=== PATIENT | female | born 1945 | race Caucasian/White ===

== ENCOUNTER 2017-03-02 23:40 | Inpatient (IN) | payer OTHER ==
[~2017-03-02] VITALS: Ht 152.4 cm; Wt 95.3 kg
--- NOTE | ~2017-03-02 | HC ---
[facility] [place] [address] CONSULTATION Name: ASTRID PATEL Room #: [facility] IN M.R.#: [id number] Admission: 03/03/17 Attend Phys: Olivier Mason MD Discharge: Date of : 49 Report #: [id number] THIS REPORT FOR: //name// CC: Chano Garcia FAM unknown Olivier Hines PULMONARY CONSULTATION PRIMARY PHYSICIAN: Forrest Parada MD REFERRAL PHYSICIAN: Dr. Theo Crews. REASON FOR REFERRAL: Cardiac arrest. HISTORY OF PRESENT ILLNESS: The patient is a 71-year-old white female who was brought to the emergency room via [place] [employer] following cardiac arrest. A pulmonary consultation was requested. According to records, the patient complained of chest pain. 911 was called. When EMS arrived, the patient was found to be in ventricular fibrillation. The family had initially started CPR when the patient became unresponsive. The patient was cardioverted 2 times. According to the records, the patient received CPR approximately 35 minutes at the home. She was given epinephrine along with amiodarone. Intubation attempt was unsuccessful. A supraglottic airway was placed. The patient remains unresponsive and hypotensive when she arrived to the emergency room. In the ER, the patient was given vasopressors, resuscitated. She was intubated. The patient was felt to have aspirated. She was subsequently transferred to the ICU. She remains obtunded. Hypotensive, requiring vasopressors. Chest x-ray revealed mild infiltrates, seen in the right lower lung field. ET tube is in the appropriate position above the faustino around 2 cm. NG is placed. Central line placement had been difficult given a body habitus. She has an intraosseous placed. Earlier this morning, she was taken to the field laborer for central line placement and art line placement. Initial reading showed a pulmonary capillary wedge pressure of 30s. Systolic blood pressure was said to be in 160 mmHg. Currently, she is unresponsive, has some mild twitches involving her upper extremities and her face. [facility] [address] [place] [address] CONSULTATION Name: ASTRID PATEL Miguel A Room #: 247-P ADM IN M.R.#: [id number] Admission: 03/03/17 Attend Phys: Olivier Mason MD Discharge: Date of : 49 Report #: [id number] PAST MEDICAL HISTORY: Notable for history of cardiac arrest in 2014, atrial fibrillation, coronary artery disease, status post coronary bypass surgery in 2014, status post cardiac stent, she sees Dr. Diaz, atrial fibrillation in the past with cardioversion, hypertension, ischemic cardiomyopathy with ejection fraction approximately 40-45%, she was recently seen by Dr. Diaz 2 weeks ago; history of gastritis. PAST SURGICAL HISTORY: Notable for coronary artery bypass surgery as mentioned above, appendectomy, right ankle pinning, and tubal ligation. ALLERGIES: PENICILLIN, WHICH CAUSES SEVERE CONVULSIONS. HOME MEDICATIONS: Reviewed, these include Valium, Eliquis, aspirin, Lipitor, Coreg, Zestril, Zantac, and Benadryl. FAMILY HISTORY: Noncontributory. SOCIAL HISTORY: She is a lifetime nonsmoker. She drinks socially. She is . REVIEW OF SYSTEMS: Deferred as the patient is intubated and encephalopathic. PHYSICAL EXAMINATION: GENERAL: She is unresponsive. VITAL SIGNS: Temperature is hypothermic as she is currently on the hypothermia protocol, pulse is 64, respiratory rate is 25, blood pressure 90/60 mmHg, and saturation 100%. HEENT: Normocephalic, atraumatic. NECK: Supple without any lymphadenopathy or thyromegaly. CHEST: Breath sounds are distant and clear. No obvious wheezes or rales. CARDIOVASCULAR: Heart sounds are distant. No obvious murmurs or gallop. Pulses are decreased bilaterally by 1/4+. BREASTS: Deferred. ABDOMEN: Soft, obese, no masses felt. GENITOURINARY: Deferred. RECTAL: Deferred. EXTREMITIES: It is cool to touch, but no obvious cyanosis or clubbing. No edema. LABORATORY DATA: Portable chest x-ray as mentioned above showing mild right lower lobe infiltrates. NG tube is in appropriate position. Sodium 139, potassium 4.5, chloride 107, CO2 is 22, BUN is 27, creatinine is 2.7. Liver function enzymes are mildly elevated. Hemoglobin 13.6, WBC is 8800, platelets are normal. Albumin 3.5. Troponin 1.3. Arterial blood gas currently, 7.08, pCO2 of 46, pO2 170 on FiO2 of 90%. [address] [address] CONSULTATION Name: ASTRID PATEL Room #: 247-P ADM IN ..#: [id number] Admission: 03/03/17 Attend Phys: Olivier Mason MD Discharge: Date of : 49 Report #: [id number] IMPRESSION: 1. Witnessed cardiac arrest, ventricular fibrillation. 2. Hypotension due to cardiogenic shock. 3. Acute hypoxic respiratory failure. 4. Acute kidney injury, now with anuria, metabolic acidosis. 5. Probable shock liver. 6. Probable severe anoxic brain injury. 7. Coronary artery disease, ischemic cardiomyopathy, ejection fraction 40-45%, status post coronary artery bypass surgery in 2015, status post stent placement in the past. 8. Chronic atrial fibrillation, chronic anticoagulation. RECOMMENDATION: We will continue mechanical ventilation, correct acid base. We will try to maintain adequate urine output if possible. Bicarb will be given. Agree with hypothermia protocol. Overall, prognosis is felt to be very poor given duration of down time. Family has been made aware by Dr. Hall. Thank you for this consultation. By: [id number] KAREEN Tejada /keira
--- NOTE | ~2017-03-02 | HC ---
[facility] [place] [address] [place] [address] CONSULTATION Name: ASTRID PATEL Room #: 247-P [facility] IN ..#: [id number] Admission: 03/03/17 Attend Phys: Olivier Mason MD Discharge: 03/04/17 Date of : 49 Report #: [id number] THIS REPORT FOR: //name// CC: Chano Garcia FAM unknown Forrest Hines DATE OF SERVICE: 03/03/2017 HISTORY OF PRESENT ILLNESS: The patient is a 71-year-old white female who I was asked to see in the hospital today after she suffered a cardiac arrest. The history is obtained from the old records. The patient is currently comatose. There are no family members available. She presented in June 2014, here to [facility]. She apparently had coronary angioplasty at in the past and had previous stenting. She came to the emergency room complaining of shortness of breath and was found to be in atrial fibrillation. She was seen by my partner, Dr. Diaz. She underwent a TERRENCE and was cardioverted. She apparently developed QT prolongation and sotalol was discontinued. Cardiac catheterization showed severe coronary artery disease. She underwent coronary artery bypass surgery. Because of QT prolongation, she was actually taken off of amiodarone. A LifeVest was recommended. She subsequently was discharged on Eliquis, aspirin, Lipitor, carvedilol, and lisinopril. She apparently was doing well until last night. Apparently, her boyfriend heard her fall at home. She apparently was not breathing and no pulse was felt. Apparently, the boyfriend started chest compressions. When paramedics arrived, she was found to be in ventricular fibrillation. She was given epinephrine, amiodarone, and twice. CPR was performed for 30 minutes. She was also given atropine. Paramedics were unable to intubate the patient. She apparently vomited. She was brought here to the emergency room at [facility]. The patient was given IV fluids. She was able to be intubated and was placed in the ICU. I was asked to see her for further evaluation and treatment. The patient was placed on a code ice. She is currently on IV Levophed. PAST MEDICAL HISTORY: Otherwise significant for appendectomy, ankle repair, removal of a Rose's cyst, ganglion cyst removal. She had no previous history of hypertension or diabetes. MEDICATIONS AT HOME: Consist of valium, Eliquis, aspirin, Lipitor, carvedilol, lisinopril, and ranitidine. ALLERGIES: She is intolerance to PENICILLIN. SOCIAL HISTORY: Nonsmoker. She does use alcohol occasionally. [address] [address] CONSULTATION Name: ASTRID PATEL Room #: 247-P [facility] IN M.R.#: [id number] Admission: 03/03/17 Attend Phys: Olivier Mason MD Discharge: 03/04/17 Date of : 49 Report #: [id number] REVIEW OF SYSTEMS: There is no previous history of stroke, asthma, peptic ulcer disease, liver disease, or cancer. PHYSICAL EXAMINATION: GENERAL: Revealed an elderly female, lying in bed. She is on a ventilator. VITAL SIGNS: She had a blood pressure of only 100, pulse is 80. HEENT: Mucous membranes are moist. Pupils are dilated, nonreactive. CHEST: Clear to auscultation. HEART: Irregular rhythm. ABDOMEN: Soft. EXTREMITIES: Had no edema. Dorsalis pedis pulse cannot be palpated. SKIN: Cool and dry. NEUROLOGIC: She was noted to be posturing. She was unresponsive to painful stimuli. ECG showed atrial fibrillation with a left bundle branch block. Her previous echocardiogram in 2014, showed an ejection fraction of 40%. Her chest x-ray last night showed cardiomegaly, mild vascular congestion. Her lab work, sodium 134, BUN of 24, creatinine 1.9, SGOT 125, magnesium is 1.3. Troponin this morning is 0.61. White blood cell count 8.0, hemoglobin 14. IMPRESSION AND RECOMMENDATIONS: 1. Cardiac arrest. Suspect primary ventricular arrhythmias. The patient previously developed QT prolongation on antiarrhythmic therapy. 2. Prognosis poor. I would recommend support at this time. We would continue the code ice protocol for 24 hours. 3. Cardiomyopathy. The patient has been on a beta kelechi and CHACE inhibitor. 4. Atrial fibrillation. Rate controlled with beta-kelechi. The patient has been anticoagulated. 5. Hyperlipidemia. The patient has been on a statin drug. 6. Previous coronary artery bypass surgery. The patient is noted to have minimal elevation of troponin this morning, I suspect secondary to cardioversion. I would not recommend cardiac catheterization at this time. <ELECTRONICALLY SIGNED> By: Herman Lipscomb MD, FACC 03/07/17 1647 [id number] Herman Lipscomb MD, FAC /nt
--- NOTE | ~2017-03-02 | CATHLAB ---
[facility] [address] [place] [address] INVASIVE PROCEDURE REPORT Name: ASTRID PATEL Room #: 247-P [facility] IN ..#: [id number] Admission: 03/03/17 Attend Phys: Olivier Mason, Discharge: Date of : 49 Date of Service: 03/03/172019 Report #: [id number] THIS REPORT FOR: //name// APPROVED REPORT Patient Details Patient Status: In-Patient Room #: The patient is a 71 year-old female Event Personnel Jeffry Tobias RN, Herman Lipscomb E/M Engineer, Rosy Skaggs RN Monitor, Edyta Archer RTR Carlos Dewitt Amber Monitor Procedures Performed Art Access - R femoral artery* Neal Access - R femoral vein Right Heart Cath Only [id number] [facility] Indication Non-STEMI , Syncope Risk Factors Coronary Artery Disease Previous Procedures/Diagnoses Previous CABG Procedure Narrative The patient was brought urgently to the Cardiac Catheterization Laboratory and was prepped and draped in a sterile manner. The Right Groin^ was infiltrated with 1% Lidocaine subcutaneous anesthesia. A Right Heart Catheterization was performed with a 7 Fr. [place]Cuca catheter and pressure were recorded. The patient tolerated the procedure well and there were no complications associated with the procedure. There was no hematoma. 6 Bulgarian sheath was placed in the right femoral artery for BP monitoring and sutured in place. 7 Bulgarian sheath placed in the right femoral vein, and [place] Cuca catheter was removed after the procedure. The 7 congolese sheath was sutured in the right femoral vein for central venous access. Fluoro Time: 0.34 minutes Dose: DAP 275.30 cGycm2 9 mGy Contrast Type and Amount: No Contrast Given 0 ml [facility] [place] [address] INVASIVE PROCEDURE REPORT Name: ASTRID PATEL Room #: [address] [place] [address] [place] [facility].#: [id number] Admission: 03/03/17 Attend Phys: Olivier Mason, Discharge: Date of : 49 Date of Service: 03/03/172019 Report #: [id number] Hemodynamics The right atrial mean pressure is 33 mmHg. The right ventricular pressure is 60/20 mmHg. The pulmonary artery pressure is 60/40 mmHg with a mean of 52 mmHg. The mean pulmonary capillary wedge pressure is 32 mmHg. The aortic pressure is 157/79 mmHg with a mean of 109 mmHg. Conclusion 1. Elevated right heart filling pressures consistent with fluid overload Recommendations Aggressive Medical Therapy <ELECTRONICALLY SIGNED> By: Herman Lipscomb MD, [facility] 03/03/172019 19 19 Herman Lipscomb MD, FACC /INF
--- NOTE | ~2017-03-02 | EKG ---
[address] [address] ELECTROCARDIOGRAM REPORT Name: ASTRID PATEL Room #: 247-P ADM IN M.R.#: [id number] Admission: 03/03/17 Attend Phys: Olivier Mason MD Discharge: Date of : 49 Report #: [id number] THIS REPORT FOR: //name// [facility] ED Test Date: 2017-03-02 Test Time: 23:49:50 Pat Name: ASTRID PATEL Department: Room: [facility] Gender: F Assurance Officer: LM : 1945 Requested By: Theo Crews Order Number: [id number] MD: Chano Garcia Measurements Intervals Enterprise Rate: 72 P: ID: QRS: -51 QRSD: 145 T: 115 QT: 538 QTc: 589 Interpretive Statements Atrial fibrillation Left bundle branch block Compared to ECG 07/20/2014 08:18:42 Sinus rhythm no longer present Electronically Signed On 03-03-2017 8:12:40 CDT by Chano Garcia [email or web address] <ELECTRONICALLY SIGNED> By: Chano Garcia MD, [facility] 03/03/1712 2349 2349 Chano Garcia MD, [facility] /EPI
--- NOTE | ~2017-03-02 | 2DMMODE ---
[facility] [address] [place] [address] 2 D/M-MODE ECHOCARDIOGRAM Name: ASTRID PATEL Room #: 247-P [facility] IN ..#: [id number] Admission: 03/03/17 Attend Phys: Olivier Mason, Discharge: Date of : 49 Date of Service: 03/03/17 1714 Report #: [id number] THIS REPORT FOR: //name// APPROVED REPORT Study performed: 03/03/2017 08:23:08 EXAM: Comprehensive 2D, Doppler, and color-flow Echocardiogram Patient Location: ICU Room #: [facility] Status: routine BSA: 1.91 HR: 73 bpm BP: 133/92 mmHg Rhythm: Atrial Fibrillation Other Information Study Quality: AdequateTechnically Limited Technically limited study due to being in ICU on vent. Lung artifact.. Indications Status post code. Hx: CABG, stents, ISCM, Afib, HTN 2D Dimensions RVDd: 39.81 mm IVSd: 11.00 (7-11mm) LVOT Diam: 19.07 (18-24mm) LVDd: 40.10 mm PWd: 11.00 (7-11mm) Ascending Ao: 28.14 (22-36mm) LVDs: 29.76 (25-40mm) Aortic Root: 25.80 mm Volumes Left Atrial Volume (Systole) Single Plane 4CH: 91.78 mL Single Plane 2CH: 55.30 mL LA ESV Index: 45.00 mL/m2 Aortic Valve AoV Peak Andres.: 1.42 m/s AO Peak Gr.: 9.60 mmHg LVOT Max P.62 mmHg LVOT Max V: 0.63 m/s MEHNAZ Vmax: 1.27 cm2 Mitral Valve MV Decel. Time: 179.85 ms [facility] [place] [address] 2 D/M-MODE ECHOCARDIOGRAM Name: JORGEASTRID K Room #: 247-P [facility] IN ..#: [id number] Admission: 03/03/17 Attend Phys: Olivier Mason, Discharge: Date of : 49 Date of Service: 03/03/17 1714 Report #: [id number] MV E Max Andres.: 0.91 m/s Pulmonary Valve PV Peak Andres.: 0.96 m/s PV Peak Gr.: 3.68 mmHg Tricuspid Valve TR Peak Andres.: 3.15 m/s RAP Estimate: 5.00 mmHg TR Peak Gr.: 39.81 mmHg PA Pressure: 45.00 mmHg Left Ventricle The left ventricle is normal size. There is normal left ventricular wall thickness. Left ventricular systolic function is mildly decreased. LVEF is 45%. This study is not technically sufficient to allow evaluation of the LV diastolic function due to atrial fibrillation. Right Ventricle The right ventricle is normal size. Right ventricle function is low normal. Atria Left atrium is moderately dilated. Right atrium is mildly dilated. Aortic Valve Aortic valve is mildly calcified. Trace aortic regurgitation. There is no aortic valvular stenosis. Mitral Valve Mitral valve leaflets are mildly thickened. Trace to mild mitral regurgitation. No evidence of mitral valve stenosis. Tricuspid Valve The tricuspid valve is normal in structure. Moderate tricuspid regurgitation. Estimated PAP is 50 mmHg. Pulmonic Valve Pulmonic valve is not well visualized. Trace pulmonic regurgitation. Great Vessels The aortic root is normal in size. The ascending aorta is normal in size. IVC is normal in size and collapses >50% with inspiration. [facility] [address] [place] [address] 2 D/M-MODE ECHOCARDIOGRAM Name: ASTRID PATEL Room #: 247-P [facility] IN .R.#: [id number] Admission: 03/03/17 Attend Phys: Olivier Mason, Discharge: Date of : 49 Date of Service: 03/03/171713 Report #: [id number] Pericardium There is no pericardial effusion. <Conclusion> LVEF is 45%. Left atrium is moderately dilated. Right atrium is mildly dilated. Moderate tricuspid regurgitation. Estimated PAP is 50 mmHg. <ELECTRONICALLY SIGNED> By: Herman Lipscomb MD, [facility] 03/03/171713 13 13 Herman Lipscomb MD, FACC /INF
[~2017-03-02 23:40] MED LIST: ALEVE220 MG PO; ASPIR 8181 MG PO; ATORVASTATIN CA40 MG; BENADRYL25 MG PO; BENTYL 20 MG TA20 M1 PO; CARAFATE 1 GM TA1 G1 PO; CIPRO250 M1 PO; COREG25 MG PO; COREG6.25 MG PO; ELIQUIS5 MG PO; FERREX 150150 MG PO; HYDROCODONE-AP1 EAC6 PO; LIPITOR 20 MG T20 M1 PO; LISINOPRIL10 MG PO; LISINOPRIL2.5 MG PO; MIRALAX17 GM PO; NEXIUM 24HR20 MG PO; NEXIUM40 MG PO; NORCO 5-325 TA1 EACH PO; SALINE NASAL M126 ML NASAL; TYLENOL325 MG PO; ZANTAC 150MG T150 MG PO
[2017-03-03] VITALS (33 sets, daily range): BP systolic 76–159; BP diastolic 42–123
[2017-03-03 00:47] LABS: ABG SAMPLE TYPE ARTERIAL; BE(vivo) -7.4 mmol/L (-2 to +3); HCO3 18.4 mmol/L (22.0-26.0); LACTATE 4.07 mmol/L (0.5-2.0); O2(CT) 19.7 mL/dL (15.0-23.0); O2Hb 97.8 % (92.0-98.0); PCO2 38.4 mmHg (35.0-45.0); PO2 140.6 mmHg (80.0-100.0); sO2 98.6 % (92.0-98.0); tCO2 19.6 mmol/L (24.0-30.0)
[2017-03-03 00:48] LABS: STICK SITE R.RADIAL; TIDAL VOLUME 500 ml; pH 7.299 (7.360-7.450)
[2017-03-03] MEDS ORDERED: B-12 DOTS500 MCG PO (02:08)
[2017-03-03] MEDS ORDERED: VALIUM5 MG PO (02:08)
[2017-03-03] MEDS ORDERED: ODOR FREE GARL1 EAC1 PO (02:09)
[2017-03-03 03:43] LABS: HEMATOCRIT 42.8 % (37.0-47.0); MCH 28.8 pg (26.0-34.0); MCHC 32.7 g/dL (28.0-37.0); MCV 88.1 fL (80.0-100.0); PLATELET COUNT 207 thou/uL (150-400); RBC 4.86 mil/uL (4.20-5.00); RDW 14.3 % (10.5-14.5)
[2017-03-03 03:52] LABS: CALCIUM 7.7 mg/dL (8.5-10.1); CREATININE 1.9 mg/dL (0.6-1.0); POTASSIUM 4.4 mmol/L (3.5-5.1)
[2017-03-03 03:58] LABS: ABG SAMPLE TYPE ARTERIAL; BE(vivo) -8.3 mmol/L (-2 to +3); HCO3 16.8 mmol/L (22.0-26.0); LACTATE 2.25 mmol/L (0.5-2.0); O2(CT) 20.5 mL/dL (15.0-23.0); O2Hb 97.5 % (92.0-98.0); PCO2 33.7 mmHg (35.0-45.0); PO2 133.3 mmHg (80.0-100.0); STICK SITE L.RADIAL; TIDAL VOLUME 500 ml; pH 7.316 (7.360-7.450); sO2 98.5 % (92.0-98.0); tCO2 17.9 mmol/L (24.0-30.0)
[2017-03-03 04:00] LABS: MAGNESIUM 1.3 mg/dL (1.8-2.4); PHOSPHORUS 4.5 mg/dL (2.5-4.9)
[2017-03-03 04:02] LABS: TROPONIN-I 0.61 ng/mL (<0.04-0.07)
[2017-03-03 04:04] LABS: APTT 22.2 Seconds (24.5-32.8); FIBRINOGEN 276.2 mg/dL (210-360); INR 1.2; PROTIME 11.8 Seconds (9.3-11.4)
[2017-03-03 04:18] LABS: MANUAL DIFF YES; TOTAL CELL COUNT 100
[2017-03-03 04:27] LABS: ABSOLUTE NEUTROPHILS 6.3 thou/uL (1.4-8.2); METAMYELOCYTES 3 %
[2017-03-03 04:59] LABS: ALBUMIN 3.5 g/dL (3.4-5.0); DIRECT BILIRUBIN 0.3 mg/dL (<0.1-0.3); TOTAL BILIRUBIN 0.9 mg/dL (<0.1-1.0); TOTAL PROTEIN 5.6 g/dL (6.4-8.2)
[2017-03-03 08:02] LABS: BASOPHILS 0.4 % (0.0-2.0); EOSINOPHILS 0.5 % (0.0-3.0); HEMATOCRIT 39.9 % (37.0-47.0); HEMOGLOBIN 13.4 gm/dL (12.0-15.0); LYMPHOCYTES 17.6 % (24.0-44.0); MCH 29.9 pg (26.0-34.0); MCHC 33.6 g/dL (28.0-37.0); MONOCYTES 5.2 % (1.0-8.0); PLATELET COUNT 184 thou/uL (150-400); POLYS 76.3 % (36.0-66.0); RBC 4.48 mil/uL (4.20-5.00); RDW 14.3 % (10.5-14.5); WBC 6.5 thou/uL (4.0-11.0)
[2017-03-03 08:03] LABS: MANUAL DIFF NO
[2017-03-03 08:18] LABS: CALCIUM 7.8 mg/dL (8.5-10.1); CREATININE 2.1 mg/dL (0.6-1.0); MAGNESIUM 1.6 mg/dL (1.8-2.4); POTASSIUM 4.4 mmol/L (3.5-5.1)
[2017-03-03 08:21] LABS: TROPONIN-I 1.17 ng/mL (<0.04-0.07)
[2017-03-03 10:46] LABS: ABG SAMPLE TYPE ARTERIAL; HCO3 13.6 mmol/L (22.0-26.0); LACTATE 2.02 mmol/L (0.5-2.0); O2(CT) 19.6 mL/dL (15.0-23.0); O2Hb 97.9 % (92.0-98.0); PCO2 46.4 mmHg (35.0-45.0); PO2 170.7 mmHg (80.0-100.0); sO2 98.5 % (92.0-98.0); tCO2 15.1 mmol/L (24.0-30.0)
[2017-03-03 10:48] LABS: STICK SITE ART LINE; pH 7.086 (7.360-7.450)
[2017-03-03 10:49] LABS: TIDAL VOLUME 500 ml; VDS CMV MODE cc
[2017-03-03 12:12] LABS: ABSOLUTE NEUTROPHILS 6.5 thou/uL (1.4-8.2); BASOPHILS 0.2 % (0.0-2.0); EOSINOPHILS 0.4 % (0.0-3.0); HEMATOCRIT 40.5 % (37.0-47.0); HEMOGLOBIN 13.6 gm/dL (12.0-15.0); LYMPHOCYTES 20.1 % (24.0-44.0); MCH 29.5 pg (26.0-34.0); MCHC 33.6 g/dL (28.0-37.0); MCV 87.8 fL (80.0-100.0); MONOCYTES 5.3 % (1.0-8.0); PLATELET COUNT 207 thou/uL (150-400); RBC 4.62 mil/uL (4.20-5.00); RDW 14.5 % (10.5-14.5); WBC 8.8 thou/uL (4.0-11.0)
[2017-03-03 12:13] LABS: MANUAL DIFF NO
[2017-03-03 12:26] LABS: CALCIUM 7.6 mg/dL (8.5-10.1); CREATININE 2.2 mg/dL (0.6-1.0); PHOSPHORUS 4.7 mg/dL (2.5-4.9); POTASSIUM 4.5 mmol/L (3.5-5.1)
[2017-03-03 12:28] LABS: TROPONIN-I 1.31 ng/mL (<0.04-0.07)
[2017-03-03 13:23] LABS: ABG SAMPLE TYPE ARTERIAL; BE(vivo) -11.6 mmol/L (-2 to +3); HCO3 16.7 mmol/L (22.0-26.0); LACTATE 2.02 mmol/L (0.5-2.0); PCO2 46.7 mmHg (35.0-45.0); PO2 208.2 mmHg (80.0-100.0); sO2 99.1 % (92.0-98.0); tCO2 18.1 mmol/L (24.0-30.0)
[2017-03-03 13:24] LABS: STICK SITE LINE; TIDAL VOLUME 500 ml; pH 7.171 (7.360-7.450)
[2017-03-03 13:25] LABS: ABG COMMENT A/C
[2017-03-04 00:01] VITALS: BP 140/56
[2017-03-04 01:00] VITALS: BP 122/50
[2017-03-04 02:00] VITALS: BP 126/52
== END 2017-03-04 02:57 | DRG 208 ==
LOC: ER 23:40 → ICU 03-03 01:31 → EROBS 03-03 01:31 → ICU 03-03 04:18
PROVIDERS: Emergency Medicine; Internal Medicine; Internal Medicine Pulmonary Disease; Nurse Practitioner Acute Care
PROC: 5A1935Z Respiratory Ventilation, Less than 24 Consecutive Hours (ICD-10-PCS; principal; 2017-03-03)
PROC: B2111ZZ Fluoroscopy of Multiple Coronary Arteries using Low Osmolar Contrast (ICD-10-PCS; 2017-03-03)
PROC: 4A023N6 Measurement of Cardiac Sampling and Pressure, Right Heart, Percutaneous Approach (ICD-10-PCS; 2017-03-03)
DX: J96.01 Acute respiratory failure with hypoxia (principal); N17.9 Acute kidney failure, unspecified; E87.2 Acidosis; I50.22 Chronic systolic (congestive) heart failure; K92.2 Gastrointestinal hemorrhage, unspecified; I46.9 Cardiac arrest, cause unspecified; I49.01 Ventricular fibrillation; E78.5 Hyperlipidemia, unspecified; I11.0 Hypertensive heart disease with heart failure; I25.10 Atherosclerotic heart disease of native coronary artery without angina pectoris; I95.9 Hypotension, unspecified; I25.5 Ischemic cardiomyopathy; I48.2 Chronic atrial fibrillation; T68.XXXA Hypothermia, initial encounter; E83.42 Hypomagnesemia; Z95.1 Presence of aortocoronary bypass graft; Z90.49 Acquired absence of other specified parts of digestive tract; Z95.5 Presence of coronary angioplasty implant and graft; Z88.0 Allergy status to penicillin; Z79.01 Long term (current) use of anticoagulants
CPT/HCPCS: 10078